=== PATIENT | male | born 1960 | race Caucasian/White ===

== ENCOUNTER 2020-07-10 12:34 | Emergency (ER) | payer OTHER ==
[~2020-07-10] VITALS: Ht 182.9 cm; Wt 74.8 kg
[2020-07-10 12:37] VITALS: BP 124/78
--- NOTE | 2020-07-10 12:40 | NUR ---
PATIENT WHEELCHAIR ASSISTED TO LOBBY
--- NOTE | 2020-07-10 13:13 | NUR ---
RECEIVED A 60/M FROM [facility] WITH A C/O LEFT SIDED HIP PAIN. PT REPORTS PAIN IS CHRONIC S/P BREAKING A HIP 3 MOS AGO. PT REPORTS MECH FALL TODAY WHILE IN THE STORE. DENIES NEW INJURIES OR TRAUMA. PT WAS AMUBLATORY FROM [facility] TO [facility].
--- NOTE | 2020-07-10 13:30 | NUR ---
Dr. Russell is evaluating the patient at bedside.
[2020-07-10] MEDS ORDERED: KETOROLAC 60 MG/2 ML VIAL IM ONE (13:55)
[2020-07-10] MEDS ORDERED: NAPR-1847 PO ×2 (14:22→15:00)
[2020-07-10 15:10] VITALS: BP 124/78
--- NOTE | 2020-07-10 15:14 | NUR ---
BUS PASS PROVIDED.
== END 2020-07-10 15:09 | disposition home or self-care (01) ==
LOC: EDBD 12:34 → MED 12:34
DX: S70.02XA Contusion of left hip, initial encounter (principal); F17.290 Nicotine dependence, other tobacco product, uncomplicated; Z79.899 Other long term (current) drug therapy; W11.XXXA Fall on and from ladder, initial encounter; Y93.89 Activity, other specified; Y92.89 Other specified places as the place of occurrence of the external cause; Y99.8 Other external cause status
CPT/HCPCS: 73502; 96372; 99283; J1885

== ENCOUNTER 2020-07-23 19:28 | Emergency (ER) | payer OTHER ==
[~2020-07-23] VITALS: Ht 185.4 cm; Wt 65.8 kg
[~2020-07-23 19:28] MED LIST: NAPR-1847 PO
--- NOTE | 2020-07-23 19:31 | NUR ---
BIBA TAKEN TO BED #6
--- NOTE | 2020-07-23 19:35 | NUR ---
60 Y/O MALE BIBA DUE TO ETOH INTOXICATION. PT IS CONFUSED. A&0X3. GCS 14. PT IS VERY CONFUSED. PMH: UNABLE TO OBTAIN NKA
[2020-07-23] MEDS ORDERED: NACL 0.9% 2,000 ML IV ONE (19:50)
[2020-07-23 20:42] VITALS: BP 162/78
--- NOTE | 2020-07-23 21:14 | NUR ---
LAB AT BEDSIDE.
[2020-07-23 21:27] LABS: BASOPHILS % (AUTO) 0.4 % (0.0-2.0); HEMATOCRIT 36.8 % (36-52); HEMOGLOBIN 12.3 g/dL (12.0-18.0); LYMPHOCYTES # (AUTO) 0.4 K/uL (2.0-11.5); LYMPHOCYTES % (AUTO) 6.6 % (20.5-51.1); MEAN CORPUSCULAR HEMOGLOBIN 32 pg (27-31); MEAN CORPUSCULAR HGB CONC 34 g/dL (33-37); MEAN CORPUSCULAR VOLUME 95.1 fL (80-94); MONOCYTES # (AUTO) 0.8 K/uL (0.8-1.0); MONOCYTES % (AUTO) 11.8 % (1.7-9.3); NEUTROPHILS # (AUTO) 5.5 K/uL (1.8-7.7); PLATELET COUNT (AUTO) 168 K/uL (140-450); RED BLOOD CELL COUNT(AUTO) 3.87 MIL/uL (4.20-6.10); RED CELL DISTRIBUTION WIDTH 17.3 % (11.6-13.7); WHITE BLOOD COUNT (AUTO) 6.7 K/uL (4.8-10.8)
[2020-07-23 21:39] LABS: ALBUMIN 2.8 g/dL (3.4-5.0); ANION GAP 10.5 (8-16); ASPARTATE AMINOTRANSFERASE 40 U/L (15-37); CARBON DIOXIDE 27.5 mmol/L (21-32); CHLORIDE 99 mmol/L (98-107); CREATININE 0.6 mg/dL (0.6-1.3); GFR ARICAN-AMERICAN 177 mL/min (>90); GLUCOSE 103 mg/dL (74-106); SODIUM SERUM 133 mmol/L (136-145); TOTAL BILIRUBIN 0.3 mg/dL (0.0-1.0); UREA NITROGEN, BLOOD 15 mg/dL (7-18)
[2020-07-23 21:42] LABS: ACETAMINOPHEN < 0.5 ug/ml (10-30); SALICYLATE < 2.8 mg/dL (2.8-20.0)
[2020-07-23 21:47] LABS: NEUTROPHILS % (AUTO) 81.2 % (42.2-75.2)
[2020-07-24 00:45] VITALS: BP 120/85
--- NOTE | 2020-07-24 00:51 | NUR ---
Patient discharged with v/s stable. Written and verbal after care instructions given and explained. Patient alert, oriented and verbalized understanding of instructions. Ambulatory with steady gait. All questions addressed prior to discharge. ID band removed. Patient advised to follow up with PMD. Patient educated on indication of medication including possible reaction and side effects. Opportunity to ask questions provided and answered.
--- NOTE | 2020-07-24 19:47 | NUR ---
LATE ENTRY- 0.9% NS BOLUS DISCONTINUED AT 2215
[2020-07-25] MEDS ORDERED: IBUP-2213 PO (15:11)
== END 2020-07-24 00:45 | disposition home or self-care (01) ==
LOC: MED 19:28
DX: F10.129 Alcohol abuse with intoxication, unspecified (principal); Y90.9 Presence of alcohol in blood, level not specified
CPT/HCPCS: 36415; 80053; 85025; 96360; 96361; 99283; G0480; G0482; J7030

== ENCOUNTER 2020-07-25 13:44 | Emergency (ER) | payer OTHER ==
[~2020-07-25] VITALS: Ht 182.9 cm; Wt 72.6 kg
[2020-07-25] MEDS ORDERED: KETOROLAC 30 MG/ML VIAL IM ONE (13:55)
[2020-07-25 13:57] VITALS: BP 145/79
--- NOTE | 2020-07-25 14:00 | NUR ---
JORGE STRATTON AT BEDSIDE
--- NOTE | 2020-07-25 14:01 | NUR ---
60 Y/O MALE BIBA C/O LEFT HIP PAIN X3 DAYS. PT STATED HE FELL X3 DAYS AGO. DENIES LOC. PT RECEIVED FIRST COVID VACCINE LAST WEEK. PT WAS FOUND WALKING AROUND NEIGHBORHOOD AND PD WAS CALLED. PT IS HOMELESS. PT DENIES N/V/SOB. PT RATES PAIN 10/10 THAT IS SHARP. PT A/O X4 WITH EVEN AND UNLABORED RESPIRATIONS. PT LAYING IN BED WITH BED IN LOWEST POSITION, BRAKES LOCKED, X2 SIDERAILS UP. PMH: DENIES NKA
[2020-07-25] MEDS ORDERED: IBUP-2213 PO (15:11)
--- NOTE | 2020-07-25 15:30 | NUR ---
PT TAKEN TO SHOWER IN [facility] WITH [facility] VIA W/C
[2020-07-25 16:00] VITALS: BP 145/79
--- NOTE | 2020-07-25 16:06 | NUR ---
Patient given written and verbal discharge instructions and verbalizes understanding. Given copies of tests performed during visit. Patient is awake, alert and oriented. Ambulatory with steady gait. Refuses offer of care home placement. Given list of available shelters in surrounding areas. Pt given homeless packet, bag of food and bus pass. Pt signed homeless waiver.
== END 2020-07-25 16:06 | disposition home or self-care (01) ==
LOC: MED 13:44
DX: S70.02XA Contusion of left hip, initial encounter (principal); M16.12 Unilateral primary osteoarthritis, left hip; F17.290 Nicotine dependence, other tobacco product, uncomplicated; Z79.899 Other long term (current) drug therapy; W19.XXXA Unspecified fall, initial encounter; Y93.89 Activity, other specified; Y92.89 Other specified places as the place of occurrence of the external cause; Y99.8 Other external cause status
CPT/HCPCS: 73502; 96372; 99283; J1885

== ENCOUNTER 2020-09-08 17:50 | Emergency (ER) | payer OTHER, SELFPAY ==
[~2020-09-08] VITALS: Ht 172.7 cm; Wt 70.3 kg
[~2020-09-08 17:50] MED LIST changes: +ACET-1182 PO; +ACET-9525 PO; +CLIN300C2 PO; +DOCU-299 PO; -NAPR-1847 PO
[2020-09-08] MEDS ORDERED: HALOPERIDOL IM 5 MG/ML VIAL ONE (17:55)
[2020-09-08] MEDS ORDERED: LORazepam 2 MG/ML VIAL ONE (17:55)
[2020-09-08 18:01] VITALS: BP 83/43
[2020-09-08] MEDS: HALOPERIDOL IM 5 MG/ML VIAL IM ONE (18:06)
[2020-09-08] MEDS: LORazepam 2 MG/ML VIAL IM/IVP ONE (18:06)
[2020-09-08] MEDS: NACL 0.9% 1,000 ML IV ONE (19:13)
[2020-09-08 19:25] LABS: BASOPHILS # (AUTO) 0.1 K/uL (0.00-0.22); BASOPHILS % (AUTO) 3.1 % (0.0-2.0); EOSINOPHILS # (AUTO) 0.3 K/uL (0-0.4); EOSINOPHILS % (AUTO) 7.1 % (0.0-4.0); HEMATOCRIT 31.6 % (36-52); HEMOGLOBIN 10.7 g/dL (12.0-18.0); LYMPHOCYTES # (AUTO) 0.8 K/uL (2.0-11.5); LYMPHOCYTES % (AUTO) 21.5 % (20.5-51.1); MEAN CORPUSCULAR HEMOGLOBIN 33 pg (27-31); MEAN CORPUSCULAR HGB CONC 34 g/dL (33-37); MEAN CORPUSCULAR VOLUME 96.6 fL (80-94); MONOCYTES # (AUTO) 0.5 K/uL (0.8-1.0); MONOCYTES % (AUTO) 14.5 % (1.7-9.3); NEUTROPHILS % (AUTO) 53.8 % (42.2-75.2); PLATELET COUNT (AUTO) 231 K/uL (140-450); RED BLOOD CELL COUNT(AUTO) 3.27 MIL/uL (4.20-6.10); RED CELL DISTRIBUTION WIDTH 17.1 % (11.6-13.7); WHITE BLOOD COUNT (AUTO) 3.7 K/uL (4.8-10.8)
[2020-09-08 19:39] LABS: ALBUMIN 3.6 g/dL (3.4-5.0); CARBON DIOXIDE 24.5 mmol/L (21-32); CREATININE 0.7 mg/dL (0.6-1.3); POTASSIUM 3.5 mmol/L (3.5-5.1); TOTAL BILIRUBIN 0.4 mg/dL (0.0-1.0)
[2020-09-08 19:58] LABS: APPEARANCE,URINE CLEAR (CLEAR); BILIRUBIN,URINE NEGATIVE (NEGATIVE); BLOOD, URINE 3+ (NEGATIVE); COLOR,URINE YELLOW (YELLOW); LEUKOCYTE ESTERASE ,URINE NEGATIVE (NEGATIVE); NITRITE, URINE NEGATIVE (NEGATIVE); PH,URINE 5.5 (5.0-9.0); UGLUCOSE NEGATIVE (NEGATIVE)
[2020-09-08 20:09] LABS: BARBITURATE, URINE NEGATIVE ng/ml (NEG <=200); BENZODIAZEPINE, URINE NEGATIVE ng/mL (NEG <=200); CANNABINOID, URINE POSITIVE ng/mL (NEG <=50); COCAINE, URINE NEGATIVE ng/mL (NEG <=300); OPIATE, URINE NEGATIVE ng/mL (NEG <=2000); PHENCYCLIDINE SCREEN,URINE NEGATIVE ng/mL (NEG <=25)
[2020-09-08] MEDS: NACL 0.9% IV ONE (20:12)
[2020-09-08 20:25] LABS: HYALINE CASTS, URINE 0-10 /LPF (None Seen); WBC,URINE 0-5 /HPF (0-5)
[2020-09-09 01:05] VITALS: BP 121/79
== END 2020-09-09 02:01 | disposition home or self-care (01) ==
LOC: MED 17:50
DX: F10.19 Alcohol abuse with unspecified alcohol-induced disorder (principal); R41.0 Disorientation, unspecified; R05 Cough; Y90.9 Presence of alcohol in blood, level not specified
CPT/HCPCS: 36415; 71045; 80053; 80305; 81001; 83605; 83880; 84484; 85025; 87040; 96360; 96361; 96372; 99285; J1630; J2060; J7030